=== PATIENT | male | born 1960 | race Caucasian/White ===

== ENCOUNTER 2021-04-30 06:08 | Day surgery (SDC) | payer MEDICAID ==
[2021-04-30] MEDS ORDERED: Sodium Chloride 0.9% 1,000 ML IV SCH (06:30)
[2021-04-30] MEDS ORDERED: Midazolam 1 MG/ML 2 ML SDV ONE (07:10)
[2021-04-30] MEDS ORDERED: fentaNYL 100 MCG/2 ML SDV ONE (07:10)
[2021-04-30] MEDS ORDERED: Propofol 200 MG/20 ML SDV ONE ×2 (07:10→08:41)
[2021-04-30] MEDS ORDERED: Barium Sulfate 105% w/v Susp 1,900 ML Bottle PO ONE (10:49)
--- NOTE | 2021-04-30 11:04 | OR ---
DATE OF PROCEDURE: 04/30/2021 SURGEON: David Cerna MD PROCEDURE: Colonoscopy. FINDINGS: Very long colon precluding completion of colonoscopy due to length of colon. COMPLICATIONS: None. DATABASE OPERATOR: None. ANESTHESIA: MAC. PREOPERATIVE DIAGNOSIS: Screening colonoscopy. POSTOPERATIVE DIAGNOSIS: Screening colonoscopy. RISKS: Risks, benefits, alternatives, and limitations including infection, bleeding, perforation, false positives and false negatives were explained to the patient and he wished to proceed. PROCEDURE IN DETAIL: The patient was placed in left lateral decubitus position. Digital rectal exam was performed without abnormality. Scope was introduced and advanced atraumatically to approximately the ascending colon. The patient had a long colon with very minimal tortuosity, but the colonoscopy was terminated at this point due to the physical length of the colon. No abnormalities were noted except for diverticulosis, described as mild to moderate without evidence of diverticulitis or bleeding. No abnormalities on retroflexion. Greater than 8 minutes was spent removing the scope. The prep was acceptable, approximately 90% of the luminal surface could be seen. We will discuss the patient's options postoperatively with respect to colonoscopy completion. David Cerna MD /[id number]
--- NOTE | 2021-04-30 16:03 | CR ---
Barium Enema Comp CLINICAL HISTORY: Incomplete colonoscopy FINDINGS: Preliminary film of the abdomen is unremarkable. Patient had some retained air from colonoscopy. There is retrograde flow of barium from rectum to cecum through a very redundant colon. There was some intermittent spasm. There was some left colon diverticulosis without evidence of diverticulitis. No persistent filling defects are identified. Postevacuation film showed no persistent filling defects. Postevacuation fluoroscopy showed the appendix. IMPRESSION: Very elongated and redundant colon Left colonic diverticulosis without evidence of diverticulitis Intermittent spasm without persistent filling defects
== END 2021-04-30 12:45 | disposition home or self-care (01) ==
LOC: JP.SDS 06:08
PROVIDERS: ATTEND Surgery
DX: Z12.11 Encounter for screening for malignant neoplasm of colon (principal); K63.89 Other specified diseases of intestine; K57.30 Diverticulosis of large intestine without perforation or abscess without bleeding; I10 Essential (primary) hypertension; E11.9 Type 2 diabetes mellitus without complications
CPT/HCPCS: 74270; 74270-26; J2250; J2704; J3010; J7030